=== PATIENT | male | born 1975 | race Asian ===

== ENCOUNTER 2022-02-16 17:56 | Emergency (ER) | payer OTHER ==
[~2022-02-16] VITALS: Ht 172.7 cm; Wt 90.9 kg
[2022-02-16] MEDS ORDERED: IBUPROFEN 600 MG TABLET PO ONE (19:45)
[2022-02-16] MEDS ORDERED: DEXAMETHASONE SOD PHOS 4 MG/ML 5 ML VIAL IM ONE (19:45)
[2022-02-16 19:57] LABS: COVID AG,FIA SOURCE NASOPHARYNGEAL
[2022-02-16] MEDS ORDERED: PENICILLIN G BENZATHINE LA 1,200,000 UNITS/2 ML SYRINGE IM ONE (21:30)
[2022-02-16 22:00] VITALS: BP 141/89
== END 2022-02-16 23:24 | disposition home or self-care (01) ==
LOC: EMS 18:00
DX: J02.0 Streptococcal pharyngitis (principal); I10 Essential (primary) hypertension; Z20.822 Contact with and (suspected) exposure to COVID-19
CPT/HCPCS: 99284; 87426; 87430; 96372; J0561; J1100